=== PATIENT | female | born 1990 | race Caucasian/White ===

== ENCOUNTER 2016-08-23 14:03 | Emergency (ER) | payer BC ==
[2016-08-23 14:13] VITALS: BP 104/69
[2016-08-23] MEDS ORDERED: Sodium Chloride 0.9% 10 ML Syringe FLUSH PRN (14:13)
[2016-08-23] MEDS ORDERED: methylPREDNISolone Sodium Succinate 125 MG/2 ML SDV IVPUSH ONE (14:14)
[2016-08-23] MEDS ORDERED: Famotidine 20 MG/2 ML SDV IVPUSH ONE (14:14)
[2016-08-23] MEDS ORDERED: Sodium Chloride 0.9% 1,000 ML IV SCH (14:15)
[2016-08-23] MEDS ORDERED: LORazepam 2 MG/ML MDV IVPUSH ONE (14:16)
--- NOTE | 2016-08-23 14:17 | EDM.PDOC ---
ED HISTORY OF PRESENT ILLNESS - General Chief Complaint: Respiratory Problem Stated Complaint: BREATHING PROBLEMS Time Seen by Provider: 08/23/16 14:09 Source of Information: Reports: Patient, Family, RN, RN notes reviewed History Limitations: Reports: No limitations - History of Present Illness INITIAL COMMENTS - FREE TEXT/NARRATIVE: Patient presents to the ED at [facility] with SOB and trouble breathing that started around 10am this morning. Patient states she recently started allergy drops last Thursday. No cough. No fevers. Patient is not aware of any triggers. Symptom Onset Date: 08/23/16 Symptom Onset Time: 10:00 ED ROS GENERAL - Review of Systems Review Of Systems: See Below Constitutional: Denies: fever, chills, weakness Respiratory: Reports: Shortness of Breath, Pleuritic Chest Pain. Denies: Cough , Sputum Cardiovascular: Denies: Chest pain, Palpitations GI/Abdominal: Denies: Abdominal pain, Nausea, Vomiting Skin: Reports: no symptoms Neurological: Denies: Dizziness, Headache, Numbness, Paresthesia, Tingling ED EXAM, GENERAL - Physical Exam Exam: See Below Exam Limited By: No limitations General Appearance: alert, anxious, mild distress Respiratory/Chest: no respiratory distress, lungs clear, normal breath sounds. No: rhonchi, wheezing Cardiovascular: normal peripheral pulses, regular rate, rhythm Peripheral Pulses: 2+: radial (L), radial (R) GI/Abdominal: normal bowel sounds, soft, non tender, no distention Neurological: alert, oriented Psychiatric: anxious Skin Exam: Warm, Dry, Intact, Normal color, No rash Course - Vital Signs Last Recorded V/S: Last Vital Signs Temp 37.3 C 08/23/16 14:09 Pulse 117 H 08/23/16 14:09 Resp 20 08/23/16 14:09 BP 104/69 08/23/16 14:09 Pulse Ox 97 08/23/16 14:09 - Orders/Labs/Meds Orders: Active Orders 24 hr Category Date Time Status Chest w Cont [CT] Stat Exams 08/23/16 14:12 Taken Sodium Chloride 0.9% [Normal Saline] 1,000 ml Med 08/23/16 14:15 Active IV ASDIRECTED Sodium Chloride 0.9% [Saline Flush] Med 08/23/16 14:13 Active 10 ml FLUSH ASDIRECTED PRN Peripheral IV Insertion Adult [OM.PC] Routine Oth 08/23/16 14:13 Ordered Medication Orders Sodium Chloride (Normal Saline) 1,000 mls @ 999 mls/hr IV ASDIRECTED IDALMIS Last Admin: 08/23/16 14:45 Dose: 999 mls/hr Sodium Chloride (Saline Flush) 10 ml FLUSH ASDIRECTED PRN PRN Reason: Keep Vein Open Labs: Laboratory Tests 08/23/16 08/23/16 Range/Units 14:30 14:30 WBC 4.5 (4.0-10.0) x10^3/uL RBC 4.46 (4.00-5.50) x10^6/uL Hgb 13.3 (12.0-16.0) g/dL Hct 37.4 (33.0-47.0) % MCV 83.9 (78.0-93.0) fL MCH 29.8 (26.0-32.0) pg MCHC 35.6 (32.0-36.0) g/dL RDW Coeff of Dwight 12.5 (10.0-15.0) % Plt Count 186 (130-400) x10^3/uL Neut % (Auto) 69.7 (50.0-80.0) % Lymph % (Auto) 18.7 L (25.0-50.0) % [place] % (Auto) 8.3 (2.0-11.0) % Eos % (Auto) 3.1 (0.0-4.0) % Baso % (Auto) 0.2 (0.2-1.2) % ESR 6 (0-21) mm/hr Sodium 141 (136-145) mmol/L Potassium 3.4 L (3.5-5.1) mmol/L Chloride 107 (98-107) mmol/L Carbon Dioxide 21 (21-32) mmol/L BUN 12 (7-18) mg/dL Creatinine 0.8 (0.55-1.02) mg/dL Est Cr Clr Drug Dosing 89.96 mL/min Estimated GFR (MDRD) > 60 Glucose 96 (74-106) mg/dL Calcium 8.5 (8.5-10.1) mg/dL C-Reactive Protein 0.7 (<=0.9) mg/dL Meds: Medications Generic Name Dose Route Start Last Admin Trade Name Freq PRN Reason Stop Dose Admin Sodium Chloride 1,000 mls @ 999 mls/hr 08/23/16 14:15 08/23/16 14:45 Normal Saline IV 999 mls/hr ASDIRECTED IDALMIS Administration Sodium Chloride 10 ml 08/23/16 14:13 Saline Flush FLUSH ASDIRECTED PRN Keep Vein Open Discontinued Medications Generic Name Dose Route Start Last Admin Trade Name Freq PRN Reason Stop Dose Admin Famotidine 20 mg 08/23/16 14:14 08/23/16 14:45 Pepcid IVPUSH 08/23/16 14:15 20 mg ONETIME ONE Administration Sodium Chloride 100 mls @ 2 mls/sec 08/23/16 14:44 08/23/16 15:01 Normal Saline IV 08/23/16 14:45 2 mls/sec ONETIME ONE Administration Iopamidol 100 ml 08/23/16 14:44 08/23/16 15:00 Isovue-300 (61%) IVPUSH 08/23/16 14:45 100 ml ONETIME ONE Administration Lorazepam 0.5 mg 08/23/16 14:16 08/23/16 14:45 Ativan IVPUSH 08/23/16 14:17 0.5 mg ONETIME ONE Administration Methylprednisolone Sodium Succinate 125 mg 08/23/16 14:14 08/23/16 14:45 Solu-Medrol IVPUSH 08/23/16 14:15 125 mg ONETIME ONE Administration Departure - Departure Time of Disposition: 16:01 Disposition: Home, Self-Care 01 Condition: good Clinical Impression: Allergic response Qualifiers: Encounter type: initial encounter Qualified Code(s): T78.40XA - Allergy, unspecified, initial encounter Sinusitis, acute Qualifiers: Sinusitis location: pansinusitis Recurrence: recurrent Qualified Code(s): J01.41 - Acute recurrent pansinusitis Referrals: PCP,None [Primary Care Provider] - Forms: ED Department Discharge Additional Instructions: 1. Stay well hydrated and rest 2. Get some fresh air 3. Use OTC Benadryl cream and Pepcid as needed 4. Call Dr. Stack on Thursday 5. See your Primary as symptoms warrant ED Communication - ED Communication Date/Time Date: 08/23/16 Time Called: 15:33 - Discussed Case With (1) Discussed Case With (1): Radiologist - Conversation Summary Radiology Reading Discussed with Radiologist: Yes Summary Comment: Negative exam on CT of Chest with contrast. - Problem List Review Problem List Initiated/Reviewed/Updated: Yes - My Orders Last 24 Hours: My Active Orders 08/23/16 14:12 Chest w Cont [CT] Stat 08/23/16 14:13 Sodium Chloride 0.9% [Saline Flush] 10 ml FLUSH ASDIRECTED PRN Peripheral IV Insertion Adult [OM.PC] Routine 08/23/16 14:15 Sodium Chloride 0.9% [Normal Saline] 1,000 ml IV ASDIRECTED - Assessment/Plan Last 24 Hours: My Active Orders 08/23/16 14:12 Chest w Cont [CT] Stat 08/23/16 14:13 Sodium Chloride 0.9% [Saline Flush] 10 ml FLUSH ASDIRECTED PRN Peripheral IV Insertion Adult [OM.PC] Routine 08/23/16 14:15 Sodium Chloride 0.9% [Normal Saline] 1,000 ml IV ASDIRECTED
[2016-08-23] MEDS ORDERED: Iopamidol 612 MG/ML 100 ML Bottle IVPUSH ONE (14:44)
[2016-08-23] MEDS ORDERED: Sodium Chloride 0.9% 100 ML IV ONE (14:44)
[2016-08-23 14:59] LABS: CHLORIDE,CL 107 mmol/L (98-107); SODIUM,NA 141 mmol/L (136-145)
== END 2016-08-23 16:10 | disposition home or self-care (01) ==
LOC: VM.ED 14:03
DX: J01.41 Acute recurrent pansinusitis (principal); T78.40XA Allergy, unspecified, initial encounter
CPT/HCPCS: 36415; 71260; 80048; 85025; 85652; 86140; 96361; 96374; 96375; 99285; J2060; J2930; J7030; J7050; Q9967; S0028